=== PATIENT | male | born 1975 | race Two or more races ===

== ENCOUNTER 2016-11-07 07:15 | Emergency (ER) | payer OTHER ==
--- NOTE | 2016-11-07 07:45 | PDOC ---
History of Present Illness - General Chief Complaint: Pain Stated Complaint: GENTIAL PROBLEM Time Seen by Provider: 11/07/16 07:33 History Source: Patient Exam Limitations: No Limitations - History of Present Illness Initial Comments: 11/07/16 08:11 40-year-old male with a history of bipolar presents to the emergency department complaining of priapism since 1 AM. Patient states he gave himself an injection to the penile shaft for ED but does not recall the name of it, only that its 70 mg. patient states his prior prism has subsided minimally but not completely. Patient denies hematuria, urinary frequency/urgency/hesitancy, nausea/vomiting, fever/chills, flank pains, abdominal discomfort. This is the third time the patient has used this medication and his prior present usually lasts for approximately 45 minutes. Patient meds: Sertraline (Zoloft) 100mg, last dosage on 11/06/2016 Timing/Duration: 4-6 hours Past History - Past Medical History Allergies/Adverse Reactions: Allergies Allergy/AdvReac Type Severity Reaction Status Date / Time No Known Allergies Allergy Verified 11/07/16 07:20 Home Medications: Ambulatory Orders Sertraline HCl [Zoloft] 100 mg PO DAILY 11/07/16 Other medical history: erectile disfunction - Surgical History Abdominal Surgery: Yes (hernia) - Psycho/Social/Smoking Cessation Hx Suicidal Ideation: No Smoking History: Current every day smoker Number of Cigarettes Smoked Daily: 20 Information on smoking cessation initiated: Yes 'Breaking Loose' booklet given: 11/07/16 Hx Alcohol Use: Yes (occasional) Drug/Substance Use Hx: No Substance Use Type: None Review of Systems - Review of Systems Able to Perform ROS?: Yes Comments:: 11/07/16 08:16 CONSTITUTIONAL: Absent: fever, chills, diaphoresis, generalized weakness, malaise, loss of appetite HEENT: Absent: rhinorrhea, nasal congestion, throat pain, throat swelling, difficulty swallowing, mouth swelling, ear pain, eye pain, visual Changes CARDIOVASCULAR: Absent: chest pain, loss of consciousness, palpitations, irregular heart rate, peripheral edema RESPIRATORY: Absent: cough, shortness of breath, dyspnea with exertion, orthopnea, wheezing, stridor, hemoptysis GASTROINTESTINAL: Absent: abdominal pain, abdominal distension, nausea, vomiting, diarrhea, constipation, melena, hematochezia GENITOURINARY: + Prior present since 1 AM Absent: dysuria, frequency, urgency, hesitancy, hematuria, flank pain, genital pain MUSCULOSKELETAL: Absent: myalgia, arthralgia, joint swelling SKIN: Absent: rash, itching, pallor Is the patient limited Kazakh proficient: No *Physical Exam - Vital Signs Last Vital Signs Temp Pulse Resp BP Pulse Ox 98 F 84 18 154/105 98 11/07/16 07:18 11/07/16 07:18 11/07/16 07:18 11/07/16 07:18 11/07/16 07:18 - Physical Exam Comments: 11/07/16 08:16 GENERAL: Well developed, well nourished. Awake and alert. No acute distress. HEENT: Normocephalic, atraumatic. PERRLA, EOMI. No conjunctival pallor. Sclera are non- icteric. Moist mucous membranes. Oropharynx is clear. NECK: Supple. Full ROM. No JVD. Carotid pulses 2+ and symmetric, without bruits. No thyromegaly. No lymphadenopathy. CARDIOVASCULAR: Regular rate and rhythm. No murmurs, rubs, or gallops. Distal pulses are 2+ and symmetric. PULMONARY: No evidence of respiratory distress. Lungs clear to auscultation bilaterally. No wheezing, rales or rhonchi. ABDOMINAL: +priapism Soft. Non-tender. Non-distended. No rebound or guarding. No organomegaly. Normoactive bowel sounds. MUSCULOSKELETAL Normal range of motion at all joints. No bony deformities or tenderness. No CVA tenderness. EXTREMITIES: No cyanosis. No clubbing. No edema. No calf tenderness. SKIN: Warm and dry. Normal capillary refill. No rashes. No jaundice. NEUROLOGICAL: Alert, awake, appropriate. Cranial nerves 2-12 intact. No deficits to light touch and temperature in face, upper extremities and lower extremities. No motor deficits in the in face, upper extremities and lower extremities. Normoreflexic in the upper and lower extremities. Normal speech. Toes are down- going bilaterally. Gait is normal without ataxia. PSYCHIATRIC: Cooperative. Good eye contact. Appropriate mood and affect. *DC/Admit/Observation/Transfer Diagnosis at time of Disposition: Drug-induced priapism - Discharge Dispostion Condition at time of disposition: Stable Admit: No - Patient Instructions Printed Discharge Instructions: DI for Priapism Additional Instructions: Avoid injecting any more medication into your penile area Follow up with your Urologist this week Return to the ER for recurrent symptoms Progress Note - Progress Note Progress Note: 0742hrs: Called Urology spare person: Dr. Kathryn Campbell spare person 0810hrs: 2nd call to urology 0922hrs: Dr. Campbell/urology at bedside Tx with phenylephrine and ns
[2016-11-07 07:47] VITALS: BP 154/105; PULSE 84; TEMP 98; BMI 30.7
--- NOTE | 2016-11-07 07:51 | PDOC ---
*Physical Exam - Vital Signs Last Vital Signs Temp Pulse Resp BP Pulse Ox 98 F 84 18 154/105 98 11/07/16 07:18 11/07/16 07:18 11/07/16 07:18 11/07/16 07:18 11/07/16 07:18 - Physical Exam Comments: 11/07/16 07:51 Pt seen by the Advanced Practice Provider under my direct supervision Pt interviewed and examined He has evidence of nonischemic priapism I agree with plan as outlined by the Advanced Practice Provider 11/07/16 08:57 Urology in route Ice packs in place We have administered Sudafed, though there is not a substantial body of evidence that supports this for the treatment of nonischemic priapism Still, the potential benefits outweigh the risks *DC/Admit/Observation/Transfer Diagnosis at time of Disposition: Priapism, drug-induced - Discharge Dispostion Disposition: HOME Condition at time of disposition: Stable - Patient Instructions Printed Discharge Instructions: DI for Priapism Additional Instructions: Avoid injecting any more medication into your penile area Follow up with your Urologist this week Return to the ER for recurrent symptoms
[2016-11-07] MEDS ORDERED: PHENYLEPHRINE HCL 10 MG/1 ML SINGLE DOSE VIAL IVPB ONE (08:30)
[2016-11-07] MEDS ORDERED: PSEUDOEPHEDRINE HCL 60 MG TABLET PO SCH (08:30)
[2016-11-07] MEDS ORDERED: PSEUDOEPHEDRINE HCL 60 MG TABLET ONE (08:43)
[2016-11-07] MEDS ORDERED: PHENYLEPHRINE HCL 10 MG/1 ML SINGLE DOSE VIAL ONE (09:01)
[2016-11-07 09:03] LABS: URINE APPEARANCE CLEAR; URINE BILIRUBIN NEGATIVE (NEGATIVE); URINE COLOR LTYELLOW; URINE GLUCOSE (UA) NEGATIVE (NEGATIVE); URINE KETONE NEGATIVE (NEGATIVE); URINE LEUK ESTERASE NEGATIVE (NEGATIVE); URINE NITRITE NEGATIVE (NEGATIVE); URINE PROTEIN NEGATIVE (NEGATIVE); URINE UROBILINOGEN NEGATIVE E.U./dl (0.2-1.0)
[2016-11-07 09:04] LABS: URINE BLOOD 1+ (NEGATIVE)
[2016-11-07 09:20] LABS: URINE BACTERIA RARE /hpf (NONE SEEN); URINE MUCUS RARE; URINE RBC <1 /hpf (0-3); URINE WBC 1 /hpf (3-5)
--- NOTE | 2016-11-07 09:36 | CON.GU ---
Consult Consult Specialty:: Urology Referred by:: ER Reason for Consultation:: priapism - History of Present Illness Chief Complaint: priapism History of Present Illness: 40 year old male on intracavernosal injections for ED, who presents with several hours of a hard and painful erection. He injected trimix early this morning. This was the third time he has tried this, and had not had problems previously, but this time had increased the dose. No other complaints. - History Source History Provided By: Patient Limitations to Obtaining History: No Limitations - Past Medical History Renal/: Yes: Other (erectile dysfunction) Psych: Yes: Bipolar - Alcohol/Substance Use Hx Alcohol Use: Yes (occasional) - Smoking History Smoking history: Current every day smoker Aproximately how many cigarettes per day: 20 Home Medications - Allergies Allergies/Adverse Reactions: Allergies Allergy/AdvReac Type Severity Reaction Status Date / Time No Known Allergies Allergy Verified 11/07/16 07:20 - Home Medications Home Medications: Ambulatory Orders Sertraline HCl [Zoloft] 100 mg PO DAILY 11/07/16 Review of Systems - Review of Systems Genitourinary: reports: Pain, Other (erection which is painful) Physical Exam- Vital Signs: Vital Signs Temperature 98 F 11/07/16 07:18 Pulse Rate 84 11/07/16 07:18 Respiratory Rate 18 11/07/16 07:18 Blood Pressure 154/105 11/07/16 07:18 O2 Sat by Pulse Oximetry (%) 98 11/07/16 07:18 Constitutional: Yes: Well Nourished, No Distress, Calm Renal/: Yes: Other (priapism) Problem List - Problems (1) Priapism, drug-induced Assessment/Plan: Patient given 3cc of a 1:100 diluted phenylephrine solution injected into the left corpora. Penis detumesced. Patient told to follow up with Dr. Steven Denis and not to use medication again until he sees him, Patient understands. Code(s): N48.33 - PRIAPISM, DRUG-INDUCED
== END 2016-11-07 09:55 | disposition home or self-care (01) ==
LOC: JER 07:15
DX: N48.33 Priapism, drug-induced (principal); T50.995A Adverse effect of other drugs, medicaments and biological substances, initial encounter; Y92.018 Other place in single-family (private) house as the place of occurrence of the external cause
CPT/HCPCS: 81003; 81015; 99282-25

== ENCOUNTER 2020-10-26 20:29 | Emergency (ER) | payer OTHER ==
[2020-10-26 20:39] VITALS: BP 147/97; PULSE 65; TEMP 99.3; BMI 33.0
[2020-10-26] MEDS ORDERED: KETOROLAC TROMETHAMINE 30 MG/1 ML VIAL IM ONE (21:04)
[2020-10-26] MEDS ORDERED: KETOROLAC TROMETHAMINE 30 MG/1 ML VIAL ONE (21:07)
== END 2020-10-26 21:20 | disposition home or self-care (01) ==
LOC: JERFT 20:29
PROC: 3E0233Z Introduction of Anti-inflammatory into Muscle, Percutaneous Approach (ICD-10-PCS; principal; 2020-10-26)
DX: K08.89 Other specified disorders of teeth and supporting structures (principal)
CPT/HCPCS: 99284-25